=== PATIENT | male | born 1980 ===

== ENCOUNTER 2016-12-11 15:14 | Emergency (ER) | payer SELFPAY ==
--- NOTE | ~2016-12-11 | EKG ---
PATIENT: ELIN DENNY UNIT #: [id number] Ventricular Rate: 80 BPM Atrial Rate: 80 BPM P-R Interval: 132 ms QRS Duration: 74 ms Q-T Interval: 366 ms QTC Calculation(Bezet): 422 ms P [place]: -13 degrees Calculated R [place]: 57 degrees Calculated T [place]: 36 degrees Diagnosis Line: Normal sinus rhythm Diagnosis Line: Septal infarct , age undetermined Diagnosis Line: Abnormal ECG Diagnosis Line: Diagnosis Line: Confirmed by KIRTI DOW MD ([id number]) on Diagnosis Line: 12/12/2016 8:48:33 AM INTERPRETING MD: PALOMA ERIC
== END 2016-12-11 17:45 | disposition home or self-care (01) ==
LOC: CED 15:14
DX: Z53.21 Procedure and treatment not carried out due to patient leaving prior to being seen by health care provider (principal)
CPT/HCPCS: 93005